=== PATIENT | male | born 1935 ===

== ENCOUNTER 2018-07-17 08:45 | Day surgery (SDC) | payer OTHER ==
[~2018-07-17 08:45] MED LIST: CIPRO500 MG PO; COD LIVER OIL1 EACH PO; COZAAR25 MG; GLUCOTROL10 MG PO; INTESTINEX1 CAP PO; LEVAQUIN500 MG PO; METFORMIN HCL500 MG PO; NOVOLOG100 U/ML SQ; ULTRACET PO; VIT C-BIOFLAVO1 EACH PO
== END 2018-07-17 14:05 | disposition home or self-care (01) ==
LOC: AMB-ENDOS 08:45
DX: D12.0 Benign neoplasm of cecum (principal); D12.5 Benign neoplasm of sigmoid colon; K64.1 Second degree hemorrhoids; K57.32 Diverticulitis of large intestine without perforation or abscess without bleeding

== ENCOUNTER 2022-12-03 05:45 | Day surgery (SDC) | payer OTHER | END 2022-12-03 10:00 | disposition home or self-care (01) | LOC: AMB-ENDOS 05:45 | PROVIDERS: ATTEND Colon & Rectal Surgery | DX: K57.30 Diverticulosis of large intestine without perforation or abscess without bleeding (principal); D12.2 Benign neoplasm of ascending colon; K64.8 Other hemorrhoids; Z20.822 Contact with and (suspected) exposure to COVID-19 ==